=== PATIENT | female | born 1975 | race Caucasian/White ===

== ENCOUNTER → 2019-08-15 | Outpatient (CLI) | payer OTHER, SELFPAY ==
[2019-08-18 16:04] LABS: HPV Reflexed? NOT INDICATED
== END | disposition home or self-care (01) ==
PROVIDERS: Family Provider Family Medicine; PCP Family Medicine; Referring Provider Nurse Practitioner Adult Health; Visit Provider Nurse Practitioner Adult Health
DX: Z01.419 Encounter for gynecological examination (general) (routine) without abnormal findings (principal)
CPT/HCPCS: 88175; G0145

== ENCOUNTER → 2020-07-15 | Outpatient (CLI) | payer OTHER, SELFPAY ==
[2020-03-29 12:55] VITALS: BMI 32.5
--- NOTE | 2020-07-15 11:30 | RAD_ITS ---
STUDY: X-RAY - LEFT SHOULDER REASON FOR EXAM: Female, 44 years old. LEFT SHOULDER INJURY x1 YR AGO, PERSISTENT PAIN SINCE TECHNIQUE: 3 view(s) of the shoulder. COMPARISON: None. FINDINGS: Normal glenohumeral articulation. Normal acromioclavicular joint. Normal acromion. Normal humeral head and visualized proximal humerus. The soft tissue structures are unremarkable. Normal visualized pulmonary apex. RAD/Shoulder min 2 Views IMPRESSION: Normal x-ray examination of the shoulder. Electronically Signed: Brian Gu MD at 17:06 EDT Tel , Service support ,
== END | disposition home or self-care (01) ==
PROVIDERS: PCP Family Medicine; Referring Provider Registered Nurse; Visit Provider Registered Nurse
DX: S49.92XA Unspecified injury of left shoulder and upper arm, initial encounter (principal)
CPT/HCPCS: 73030

== ENCOUNTER 2020-07-19 11:16 | Outpatient (RCR) | payer OTHER, SELFPAY ==
[2020-03-29 12:55] VITALS: BMI 32.5
== END 2020-07-31 23:59 ==
LOC: EMPH 11:16
PROVIDERS: PCP Family Medicine; Referring Provider Family Medicine Geriatric Medicine; Visit Provider Family Medicine Geriatric Medicine
DX: Z11.59 Encounter for screening for other viral diseases (principal)
CPT/HCPCS: 87635; U0003

== ENCOUNTER 2020-08-29 15:56 | Outpatient (RCR) | payer OTHER, SELFPAY ==
[2020-03-29 12:55] VITALS: BMI 32.5
== END 2020-08-31 23:59 ==
LOC: EMPH 15:56
PROVIDERS: PCP Family Medicine; Referring Provider Family Medicine Geriatric Medicine; Visit Provider Family Medicine Geriatric Medicine
DX: Z03.818 Encounter for observation for suspected exposure to other biological agents ruled out (principal)
CPT/HCPCS: 87426

== ENCOUNTER 2020-10-30 14:02 | Outpatient (RCR) | payer OTHER, SELFPAY ==
[2020-03-29 12:55] VITALS: BMI 32.5
== END 2020-10-31 23:59 ==
LOC: EMPH 14:02
PROVIDERS: PCP Family Medicine; Referring Provider Family Medicine Geriatric Medicine; Visit Provider Family Medicine Geriatric Medicine
DX: Z03.818 Encounter for observation for suspected exposure to other biological agents ruled out (principal)
CPT/HCPCS: 87426

== ENCOUNTER 2021-01-09 13:32 | Outpatient (RCR) | payer OTHER, SELFPAY ==
[2020-03-29 12:55] VITALS: BMI 32.5
== END 2021-01-29 23:59 ==
LOC: EMPH 13:32
PROVIDERS: PCP Family Medicine; Referring Provider Family Medicine Geriatric Medicine; Visit Provider Family Medicine Geriatric Medicine
DX: Z03.818 Encounter for observation for suspected exposure to other biological agents ruled out (principal)
CPT/HCPCS: 87426

== ENCOUNTER 2021-02-21 11:12 | Outpatient (RCR) | payer OTHER, SELFPAY ==
[2020-03-29 12:55] VITALS: BMI 32.5
== END 2021-02-28 23:59 ==
LOC: EMPH 11:12
PROVIDERS: PCP Family Medicine; Referring Provider Family Medicine Geriatric Medicine; Visit Provider Family Medicine Geriatric Medicine
DX: Z03.818 Encounter for observation for suspected exposure to other biological agents ruled out (principal)
CPT/HCPCS: 87426

== ENCOUNTER → 2021-10-13 | Outpatient (CLI) | payer OTHER, SELFPAY | END | disposition home or self-care (01) | LOC: LABSPEC 18:38 | PROVIDERS: Referring Provider Family Medicine; Visit Provider Family Medicine | DX: Z20.822 Contact with and (suspected) exposure to COVID-19 (principal) | CPT/HCPCS: 87633; 87635; U0005; U0003 ==

== ENCOUNTER → 2022-09-04 | Outpatient (CLI) | payer OTHER, SELFPAY ==
--- NOTE | 2022-09-04 09:03 | BI_ITS ---
MAMMOGRAPHY - BILATERAL SCREENING REASON FOR EXAM: Female, 47 years old. Routine annual screening examination. PERTINENT HISTORY: Grandmother with breast cancer. TECHNIQUE: Digital bilateral breast kizzy (3D mammographic acquisition) in the CC and MLO projections. 2-D mediolateral oblique (MLO) and craniocaudad (CC) views of both breasts were obtained. CAD: Full Field Digital Mammography with Computer Added Detection was performed. COMPARISON: None. Baseline examination. FINDINGS: Breast Composition: The breasts are heterogeneously dense, which may obscure small masses. There are no dominant masses or suspicious calcifications. Small benign-appearing bilateral axillary lymph nodes. No other significant abnormalities are identified. BI/SCRN MAMM (CAD)W/KIZZY BILAT IMPRESSION: Negative screening mammogram. Yearly followup mammogram recommended. (A) ASSESSMENT CATEGORY: BIRADS Category 2: Benign. A letter regarding these results will be sent to the patient by the facility within 30 days. Approximately 10% of breast cancers are not detected by mammography. A normal mammogram should not delay biopsy of a clinically suspicious abnormality. [id number] Electronically Signed: Reed Wells MD at 10:02 EDT ,
== END | disposition home or self-care (01) ==
LOC: OPBI 09:02
PROVIDERS: PCP Family Medicine; Visit Provider Family Medicine
DX: Z12.31 Encounter for screening mammogram for malignant neoplasm of breast (principal)
CPT/HCPCS: 77063; 77067

== ENCOUNTER → 2024-09-22 | Outpatient (CLI) | payer OTHER, SELFPAY ==
[2024-10-02 12:08] LABS: HPV APTIMA, High Risk Negative (Negative)
[2024-10-02 12:49] LABS: HPV Reflexed? YES, CHARGE PATIENT
== END | disposition home or self-care (01) ==
PROVIDERS: PCP Family Medicine
DX: Z01.419 Encounter for gynecological examination (general) (routine) without abnormal findings (principal)
CPT/HCPCS: 87624; 88175; G0145

== ENCOUNTER 2024-11-08 07:52 | Day surgery (SDC) | payer OTHER, SELFPAY ==
--- NOTE | 2024-11-06 14:19 | PAT.ANE_ITS ---
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 When Was Last Pacemaker Check QUESTION #4 FULL TEXT: You/Your Family Experience fever (hyperthermia) with Anesthesia Last Oral Intake Last Oral intake: Last Oral Intake NPO since Meds taken in AM with sips of water? Meds patient instructed to take am of surgery PONV PONV - revenue cycle manager: PONV - revenue cycle manager Female Yes 11/06/24 13:13 HX of Motion Sickness Yes 11/06/24 13:13 HX of N/V After Surgery No 11/06/24 13:13 Non-Smoker Yes 11/06/24 13:13 Duration of Surgery greater No 11/06/24 13:13 than 60 minutes Number of Risk Factors 3 11/06/24 13:13 PONV Score Moderate Risk 11/06/24 13:13 Height & Weight Height & Weight: Anesthesia: Height & Weight Height 5 ft 10 in 09/14/24 09:46 Respiratory Assessment Respiratory Assessment - revenue cycle manager: Respiratory Tract Infection Hx - revenue cycle manager Hx Respiratory Tract Infection No 11/06/24 13:13 STOP Sleep Apnea STOP Sleep Apnea - revenue cycle manager: STOP Sleep Apnea - revenue cycle manager Hx Hypertension No 11/06/24 13:13 Hx Sleep Apnea No 11/06/24 13:13 CPAP BIPAP Do you snore loudly (louder No 11/06/24 13:13 than talking or can be heard Do you often feel tired/ No 11/06/24 13:13 fatigued/ sleepy during daytime? Has anyone observed you stop No 11/06/24 13:13 breathing during sleep? STOP Results Negative 11/06/24 13:13 QUESTION #5 FULL TEXT : Do you snore loudly (louder than talking or can be heard through closed doors)? 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 Specify any problems Hx of Preganancy in last 3 No 11/06/24 13:13 Months Nurse Filling Out Transfusion [email or web address] 11/06/24 13:13 & Questions: Date: 11/06/24 11/06/24 13:13 Time: 13:16 11/06/24 13:13 Patient unable to answer at this time (ie. confused, unrespo /Reproduction History /Reproductive History - revenue cycle manager: /Reproductive Hx- revenue cycle manager Hx Now No 11/06/24 13:13 Gestational Age (in weeks): EDC: Hx Hx Para Hx Section SAB No 11/06/24 13:13 PFSH Medical History (Updated 11/06/24 @ 13:18 by Yossi Ribera) Wears glasses Anxiety Gastric reflux Hx of skin cancer, basal cell Home Medications ?Medication ?Instructions ?Recorded ?Last Taken ?Type omeprazole 20 mg capsule,delayed 20 mg PO DAILY 03/29/20 Unknown History release phentermine 7.5 mg-topiramate ER 1 cap PO QDAY 09/14/24 Unknown History 46 mg capsule,ext.release 24hr mphase (Qsymia) cetirizine 10 mg tablet (24Hour 10 mg PO DAILY 11/06/24 Unknown History Allergy) naproxen sodium 220 mg capsule 220 mg PO BID PRN pain 11/06/24 Unknown History (Aleve) Allergy/AdvReac Type Severity Reaction Status Date / Time No Known Allergies Allergy Verified 11/06/24 13:10 Family History (Updated 09/14/24 @ 09:42 by Zenaida Reyes) Father Heart disease Mother Heart disease Muscular dystrophy Brother Muscular dystrophy Grandmother Breast cancer Other Cancer Social History (Updated 09/14/24 @ 09:43 by Zenaida Reyes) household members: spouse and children current occupational status: employed Smoking Status: Never smoker alcohol intake: current Alcohol type: wine details: once a week substance use type: does not use Audit: Pertinent Findings Pertinent Findings EKG Perinent findings: April 12, 2015. Sinus bradycardia. Stress test pertinent findings: April 22, 2015. Resting ejection fraction 60%. Ejection fraction rises to 75% with stress. At peak exercise upsloping ST changes were noted but did not meet criteria for ischemia. Patient achieved 13.4 METS Echo (EF%) pertinent findings: April 22, 2015. Ejection fraction 60%. Nonstenotic valves. Recommendation Anesthesia Recommendation Anesthesia recommendation: OPTIMIZED for anesthesia
[2024-11-08] VITALS (7 sets, daily range): BP systolic 84–130; BP diastolic 61–83; PULSE 58–71; RESP 16–18; TEMP 36.4–36.7; O2SAT 97–99; BMI 36.6
--- NOTE | 2024-11-08 08:06 | HP.PCM_ITS ---
[facility] - General General Date of Service: 11/08/24 HPI Narrative ROD MERCADO, is a 49 F who presents for a screening colonoscopy. Patient never had previous colonoscopy. Patient has bowel movements every other day to every 3 days. Denies any blood. Patient denies any chronic abdominal pain/nausea/vomiting. Patient does take omeprazole 20 mg p.o. daily for reflux which controls her symptoms. Patient has been on this for about 5 years denies any previous EGDs. Patient denies any family history of colon cancer. [facility] Medical History (Updated 11/06/24 @ 13:18 by Yossi Ribera) Wears glasses Anxiety Gastric reflux Hx of skin cancer, basal cell Home Medications ?Medication ?Instructions ?Recorded ?Last Taken ?Type omeprazole 20 mg capsule,delayed 20 mg PO DAILY 03/29/20 Unknown History release phentermine 7.5 mg-topiramate ER 1 cap PO QDAY 09/14/24 Unknown History 46 mg capsule,ext.release 24hr mphase (Qsymia) cetirizine 10 mg tablet (24Hour 10 mg PO DAILY 11/06/24 Unknown History Allergy) naproxen sodium 220 mg capsule 220 mg PO BID PRN pain 11/06/24 Unknown History (Aleve) Allergy/AdvReac Type Severity Reaction Status Date / Time No Known Allergies Allergy Verified 11/08/24 08:17 Family History (Updated 09/14/24 @ 09:42 by Zenaida Reyes) Father Heart disease Mother Heart disease Muscular dystrophy Brother Muscular dystrophy Grandmother Breast cancer Other Cancer Social History (Updated 09/14/24 @ 09:43 by Zenaida Reyes) household members: spouse and children current occupational status: employed Smoking Status: Never smoker alcohol intake: current Alcohol type: wine details: once a week substance use type: does not use Past Medical/Surgical History Planned Operation Planned Operative Procedure(s): COLONOSCOPY Previous Hospitalizations/Surgeries HX Hospitalizations: No Any Problems With Anesthesia: No You/Your Family Experience Fever (Hyperthermia) With Anes: No Cholinesterase deficiency: No Cardiovascular Hx Hypertension: No Respiratory Hx Sleep Apnea: No Hx Respiratory Tract Infection/Cold (presently): No Do You Snore Loudly (louder than talking or can be heard): No Do You Often Feel Tired/ Fatigued/ Sleepy Dring Daytime?: No Has Anyone Observed You Stop Breathing During Sleep?: No Result (for STOP score): Negative Smoking Status: Never smoker Neurological Does patient have nerve stimulator: No Reproduction : No Allergies No Known Allergies Allergy (Verified 11/08/24 08:17) Discharge After D/C, Where Do you Plan to Go: Return Home Physical Exam Const alert, oriented x3 and no apparent distress HEENT normocephalic and head/scalp atraumatic Resp normal respiratory effort Cardio regular rate GI soft to palpation and non-tender; Negative for non-distended Palpation: Negative for guarding Extremity no clubbing, cyanosis or edema Skin no rashes or lesions noted Neuro CN's II-XII intact bilaterally Psych mental status grossly normal Assessment & Plan Assessment/Plan (1) Encounter for screening for malignant neoplasm of colon: Surgery Risks - Colonoscopy I discussed with the patient the risks of the procedure: Yes Risks Include but are not Limited To: Risks include but are not limited to: Bleeding, perforation requiring further surgery, inability to complete colonoscopy requiring barium enema.
--- NOTE | 2024-11-08 08:11 | NURSING ---
refused urine, anesthesia aware
--- NOTE | 2024-11-08 08:55 | PRE.ANES_ITS ---
ASA Classification* ASA Classification ASA Classification: 2 Assessment & Plan Anesthesia* Anesthesia Assessment Anesthesia Assessment: Discussed sedation and/or anesthesia options, risks, benefits, and alternatives with patient/parents/legal guardian/POA. Questions invited. The patient/parents/legal guardian/POA seems to understand and agrees to proceed with anesthesia plan. Reviewed the physical assessment, medical history, allergy history and patient home medications list prior to surgery/procedure/anesthetic and documented any changes. Performed airway and anesthesia risk assessments. Anesthesia Type Anesthesia Type: MAC Anesthesia Focused Assessment* Temperature: 97.6 F Pulse Rate: 71 Blood Pressure: 130/83 Respiratory Rate: 16 Pulse Ox: 99 Airway Assessment Mouth opens: >3 cm Mallampati Score: II Focused Labs Anesthesia Preop lab: CBC WBC 7.6 K/mm3 (4.4-11.0) 08/15/24 06:49 RBC 4.33 M/mm3 (4.2-5.4) 08/15/24 06:49 Hgb 12.5 g/dL (12.0-15.0) 08/15/24 06:49 Hct 38.3 % (37-47) 08/15/24 06:49 Plt Count 344 K/mm3 (150-450) 08/15/24 06:49 CHEMISTRY Potassium 3.8 mmol/L (3.5-5.1) 08/15/24 06:49 Sodium 137 mmol/L (136-145) 08/15/24 06:49 Phosphorus 3.3 mg/dL (2.5-4.9) 08/15/24 06:49 BUN 15 mg/dL (7-18) 08/15/24 06:49 Creatinine 0.94 mg/dL (0.55-1.02) 08/15/24 06:49 Glucose 98 mg/dL (74-106) 08/15/24 06:49 COAG Pre-Assessment Diagnosis/Proposed Procedure Planned Operative Procedure(s): COLONOSCOPY Anesthesia History 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 When Was Last Pacemaker Check QUESTION #4 FULL TEXT: You/Your Family Experience fever (hyperthermia) with Anesthesia Last Oral Intake Last Oral intake: Last Oral Intake NPO since Meds taken in AM with sips of water? Meds patient instructed to take am of surgery PONV PONV - insurance underwriting assistant: PONV - insurance underwriting assistant Female Yes 11/06/24 13:13 HX of Motion Sickness Yes 11/06/24 13:13 HX of N/V After Surgery No 11/06/24 13:13 Non-Smoker Yes 11/06/24 13:13 Duration of Surgery greater No 11/06/24 13:13 than 60 minutes Number of Risk Factors 3 11/06/24 13:13 PONV Score Moderate Risk 11/06/24 13:13 Height & Weight Height & Weight: Anesthesia: Height & Weight Height 5 ft 10 in 11/08/24 08:17 Weight: 116 kg 11/08/24 08:17 Body Mass Index (BMI) 36.6 11/08/24 08:17 Respiratory Assessment Respiratory Assessment - insurance underwriting assistant: Respiratory Tract Infection Hx - insurance underwriting assistant Hx Respiratory Tract Infection No 11/08/24 08:07 STOP Sleep Apnea STOP Sleep Apnea - insurance underwriting assistant: STOP Sleep Apnea - insurance underwriting assistant Hx Hypertension No 11/08/24 08:07 Hx Sleep Apnea No 11/08/24 08:07 CPAP BIPAP Do you snore loudly (louder No 11/08/24 08:07 than talking or can be heard Do you often feel tired/ No 11/08/24 08:07 fatigued/ sleepy during daytime? Has anyone observed you stop No 11/08/24 08:07 breathing during sleep? STOP Results Negative 11/08/24 08:07 QUESTION #5 FULL TEXT : Do you snore loudly (louder than talking or can be heard through closed doors)? Tobacco Use History Tobacco Use History - insurance underwriting assistant: Tobacco Use History - insurance underwriting assistant Tobacco Use Smoking Status Never smoker 11/08/24 08:07 Hx Tobacco Use No 11/06/24 13:13 Years Smoking Packs Smoked per Day Smoking Cessation Date was within the last 15 years Hx Smoking Cessation Date Hx Smoking Cessation Counseling Hematologic Medial History Hematologic Hx - insurance underwriting assistant: Hematologic Medical Hx - eap specialist Hx of Blood Transfusion No 11/06/24 13:13 Hx of Transfusion in last 3 No 11/06/24 13:13 Months Date of Last Transfusion (if within last 3 months) Ever experience any problems No 11/06/24 13:13 with transfusion(s)? Specify any problems Hx of Preganancy in last 3 No 11/06/24 13:13 Months Nurse Filling Out Transfusion [email or web address] 11/06/24 13:13 & Questions: Date: 11/06/24 11/06/24 13:13 Time: 13:16 11/06/24 13:13 Patient unable to answer at this time (ie. confused, unrespo /Reproduction History /Reproductive History - insurance underwriting assistant: /Reproductive Hx- insurance underwriting assistant Hx Now No 11/08/24 08:07 Gestational Age (in weeks): EDC: Hx Hx Para Hx Section SAB No 11/06/24 13:13 PFSH Medical History (Updated 11/06/24 @ 13:18 by Yossi Ribera) Wears glasses Anxiety Gastric reflux Hx of skin cancer, basal cell Home Medications ?Medication ?Instructions ?Recorded ?Last Taken ?Type omeprazole 20 mg capsule,delayed 20 mg PO DAILY 03/29/20 Unknown History release phentermine 7.5 mg-topiramate ER 1 cap PO QDAY 09/14/24 Unknown History 46 mg capsule,ext.release 24hr mphase (Qsymia) cetirizine 10 mg tablet (24Hour 10 mg PO DAILY 11/06/24 Unknown History Allergy) naproxen sodium 220 mg capsule 220 mg PO BID PRN pain 11/06/24 Unknown History (Aleve) Allergy/AdvReac Type Severity Reaction Status Date / Time No Known Allergies Allergy Verified 11/08/24 08:17 Family History (Updated 09/14/24 @ 09:42 by Zenaida Reyes) Father Heart disease Mother Heart disease Muscular dystrophy Brother Muscular dystrophy Grandmother Breast cancer Other Cancer Social History (Updated 09/14/24 @ 09:43 by Zenaida Reyes) household members: spouse and children current occupational status: employed Smoking Status: Never smoker alcohol intake: current Alcohol type: wine details: once a week substance use type: does not use Review of Systems (Anesthesia) ROS Narrative System reviewed and no additional complaints, except as documented.
--- NOTE | 2024-11-08 09:00 | COLBX_PTH ---
PATIENT: ROD MERCADO LOC: EN U#:[id number] AGE/SX: 49/F ROOM: RE11/08/[address]: Dr. Xiao Hsu MD : 1975 BED: DIS: 11/08/2024 SPEC #: [id number] RECD: 11/08/24 11:22 STATUS: ENMA SID #: [id number] ANGELICA: 11/08/24 09:[address]: Xiao Hsu DEPT: SURGICAL PATHOLOGY RECD BY: Carmen Allen ENTERED: 11/08/24 12:15 SP TYPE: COLON BX OTHR DR: Dr. Stewart Heaton MD Tissues: Transverse colon Procedures: Surgery Specimen Level IV HEADER OPERATION: Colonoscopy, polypectomy PRE-OP DIAGNOSIS: Screening TISSUE SUBMITTED: Transverse colon polyp MICROSCOPIC DIAGNOSIS Transverse Colon Polyp, Biopsy: Tubular Adenoma DELIA, 11/09/2024 MICROSCOPIC DESCRIPTION Slides are reviewed. GROSS DESCRIPTION Received in fixative is one container labeled with the patient's name and designated Transverse colon polyp. The specimen consists of multiple irregular fragments of light wang soft tissue that in aggregate measure 0.8 x 0.5 x 0.1 cm. The specimen is totally submitted in one cassette. 11/08/2024 TC: CPT:46777
--- NOTE | 2024-11-08 09:34 | OP.COLON_ITS ---
Patient Name: Audrey Salazar Procedure Date: 11/08/2024 9:02 AM Date of : 1975 Age: 49 Procedure: Colonoscopy Indications: Screening for colorectal malignant neoplasm Providers: Xiao Hsu MD Referring MD: Stewart Heaton MD Medicines: Monitored Anesthesia Care Patient Profile: This is a 49 year old female. Last Colonoscopy: none. The patient's first colonoscopy is today. Complications: No immediate complications. Procedure: Pre-Anesthesia Assessment: - Prior to the procedure, a History and Physical was performed, and patient medications and allergies were reviewed. The patient's tolerance of previous anesthesia was also reviewed. The risks and benefits of the procedure and the sedation options and risks were discussed with the patient. All questions were answered, and informed consent was obtained. Prior Anticoagulants: The patient has taken no anticoagulant or antiplatelet agents. ASA Grade Assessment: Per anesthesia. After reviewing the risks and benefits, the patient was deemed in satisfactory condition to undergo the procedure. After I obtained informed consent, the scope was passed under direct vision. Throughout the procedure, the patient's blood pressure, pulse, and oxygen saturations were monitored continuously. The Colonoscope was introduced through the anus and advanced to the cecum, identified by the appendiceal orifice, ileocecal valve and palpation. The colonoscopy was somewhat difficult due to a tortuous colon. The patient tolerated the procedure well. The quality of the bowel preparation was good. Scope In: 9:10:33 AM Scope Withdrawal Time 0 hours 9 minutes 30 seconds Scope Out: 9:28:59 AM Total Procedure Duration Time 0 hours 18 minutes 26 seconds Findings: The perianal and digital rectal examinations were normal. A less than 5 mm polyp was found in the transverse colon. The polyp was sessile. The polyp was removed with a cold biopsy forceps. Resection and retrieval were complete. The exam was otherwise without abnormality on direct and retroflexion views. Impression: - One less than 5 mm polyp in the transverse colon, removed with a cold biopsy forceps. Resected and retrieved. - The examination was otherwise normal on direct and retroflexion views. Recommendation: - Discharge patient to home. - Resume previous diet. - Continue present medications. - Await pathology results. - Repeat colonoscopy in 5 years for surveillance based on pathology results. Procedure Code(s): --- Professional --- 16074, PT, Colonoscopy, flexible; with biopsy, single or multiple Diagnosis Code(s): --- Professional --- Z12.11, Encounter for screening for malignant neoplasm of colon D12.3, Benign neoplasm of transverse colon (hepatic flexure or splenic flexure) CPT copyright 2021 [employer]. All rights reserved. The codes documented in this report are preliminary and upon auditing coder review may be revised to meet current compliance requirements. MD Xiao Alvarez MD 11/08/2024 9:34:02 AM This report has been signed electronically. Number of Addenda: 0 Note Initiated On: 11/08/2024 9:02 AM
--- NOTE | 2024-11-08 09:35 | OP.CCLET_ITS ---
11/08/2024 Stewart Heaton MD [address] [place] [address] Re : Colonoscopy procedure for Audrey Ogdengerty Dear Dr. Heaton This procedure was performed on Friday, November 08, 2024. My impressions and recommendations are as follows: Impressions : - One less than 5 mm polyp in the transverse colon, removed with a cold biopsy forceps. Resected and retrieved. - The examination was otherwise normal on direct and retroflexion views. Recommendations : - Discharge patient to home. - Resume previous diet. - Continue present medications. - Await pathology results. - Repeat colonoscopy in 5 years for surveillance based on pathology results. My findings are described in the full procedure note, which is enclosed. If I can be of further assistance, please feel free to contact me at Doctor phone number(s): , Work: . Sincerely, MD Xiao Alvarez MD 11/08/2024 9:34:02 AM This report has been signed electronically.
--- NOTE | 2024-11-08 09:38 | PCM.POST.ANE ---
Anesthesia: Postop Eval I Current Vital Signs Temperature: 98.1 F Pulse Rate: 68 Blood Pressure: 88/61 Respiratory Rate: 16 Pulse Ox: 99 Oxygen Delivery Method: Room Air Assessment Airway patent: Yes Spontaneous unlabored respirations: Yes Mental status: Awake and Calm nausea: No Vomiting: No Anesthesia Complication: No Fluid Hydration Crystalloid volume administer (ml): 40 Total IV fluid infused: 40 Progress Note Anesthesia document: Postop Eval 1 completed: Yes
--- NOTE | 2024-11-08 12:51 | PCM.POSTANE2 ---
Anesthesia Postop Eval I Sum Postop Eval Completion status Anesthesia document: Postop Eval 1 completed: Yes Anesthesia Postop Eval I Summary Anesthesia Postop Eval I Summary: Anesthesia Postop Eval I: Assessment Summary Airway patent Yes 11/08/24 09:39 [email or web address] Spontaneous unlabored Yes 11/08/24 09:39 [email or web address] respirations Mental status Awake,Calm 11/08/24 09:39 [email or web address] nausea No 11/08/24 09:39 [email or web address] Vomiting No 11/08/24 09:39 [email or web address] Anesthesia Postop Eval I: Fluid Summary Crystalloid volume administer 40 11/08/24 09:39 [email or web address] (ml) Colloids volume administered ( ml) Blood Product volume administered (ml) Total IV fluid infused 40 11/08/24 09:39 [email or web address] Anesthesia Postop Eval I: Summary Notes Anesthesia Complication No 11/08/24 09:39 [email or web address] Anesthesia Complication Comment: Post-operative progress note Anesthesia: Postop Eval II Evaluation Mental status: Awake Pain Level: 0 nausea: No Vomiting: No
== END 2024-11-08 10:19 | disposition home or self-care (01) ==
LOC: EN 07:53 → AC 07:54
PROVIDERS: PCP Family Medicine; Referring Provider Family Medicine; Visit Provider Surgery
PROC: 0DJD8ZZ Inspection of Lower Intestinal Tract, Via Natural or Artificial Opening Endoscopic (ICD-10-PCS; CPT 45378; principal; 2024-11-08 08:55)
DX: Z12.11 Encounter for screening for malignant neoplasm of colon (principal); D12.3 Benign neoplasm of transverse colon; K21.9 Gastro-esophageal reflux disease without esophagitis; Z85.828 Personal history of other malignant neoplasm of skin
CPT/HCPCS: 45380; 88305; A4216; J2405